=== PATIENT | female | born 1995 | race Hispanic/Latino ===

== ENCOUNTER 2021-11-21 00:13 | Emergency (ER) | payer OTHER ==
[2021-11-21] MEDS ORDERED: diphenhydrAMINE 25 MG CAP ONE (00:49)
== END 2021-11-21 00:53 | disposition home or self-care (01) ==
LOC: NAV ERS 00:13
DX: O99.713 Diseases of the skin and subcutaneous tissue complicating pregnancy, third trimester (principal); L50.9 Urticaria, unspecified; O99.513 Diseases of the respiratory system complicating pregnancy, third trimester; J06.9 Acute upper respiratory infection, unspecified; O99.413 Diseases of the circulatory system complicating pregnancy, third trimester; R00.0 Tachycardia, unspecified; Z3A.28 28 weeks gestation of pregnancy
CPT/HCPCS: 99282

== ENCOUNTER 2023-03-29 20:57 | Emergency (ER) | payer OTHER ==
[2023-03-29] MEDS ORDERED: Ibuprofen 800 MG TAB ONE (22:04)
[2023-03-29] MEDS ORDERED: Cyclobenzaprine 10 MG TAB ONE (22:04)
== END 2023-03-29 22:35 | disposition home or self-care (01) ==
LOC: NAV ERS 20:57
DX: S16.1XXA Strain of muscle, fascia and tendon at neck level, initial encounter (principal); M54.6 Pain in thoracic spine; V89.2XXA Person injured in unspecified motor-vehicle accident, traffic, initial encounter
CPT/HCPCS: 99283